=== PATIENT | female | born 1990 | race Two or more races ===

== ENCOUNTER 2019-02-19 22:40 | Inpatient (IN) | payer OTHER, BC ==
[~2019-02-19 22:40] MED LIST: IBUPROFEN600 MG PO; MAPAP325 MG PO; OXYCODON-ACETA1 EAC2 PO
[2019-02-19] MEDS ORDERED: ZANTAC150 MG PO (23:29)
[2019-02-19] MEDS ORDERED: PRENATAL FORMU1 EAC3 PO (23:30)
[2019-02-19] MEDS ORDERED: MAGNESIUM100 MG PO (23:31)
--- NOTE | 2019-02-20 08:52 | PR ---
[facility] [address] [place], [place] [address] Signed Progress Notes IP Datetime Report Generated by DOUGLAS: 02/20/2019 08:52 PROGRESS NOTES: [id number] Impression: Slow Progression of Labor Procedures: Intrauterine Pressure Catheter; Sterile Vag Exam Plan: Continue present management Other Informed Consents: IUPC, anticipated course of labor VITAL SIGNS: [id number] Vital Signs: Reviewed VS Notable Details: last BP slightly elevated. Taken during contraction EXAM: [id number] Dilatation: 3.0 Effacement: 90 Station: -2 Uterine Contractions: irregular MEMBRANES: [id number] Membrane Status: Ruptured Amniotic Fluid Color: Clear Comments: Pt seen and examined. Doing well. CTXs uncomfortable and considering epidural. Reviewed slow rate of cervical change. Discussed IUPC allowing to monitor contractions and augment w/ pitocin if needed. Pt understands and agrees. IUPC placed easily with clear fluid noted. All questions answered Fetus A: [id number] FHR Baseline: 130 Variability: Moderate 6-25bpm Accelerations: None Decelerations: None FHR Category: Category I Presentation: Vertex Comments on Fetus A: No evidence of metabolic acidosis Fetus B: [id number] Signing Physician: Julieth Al DO Copies: ~ *Electronically Signed* 02/20/19 0852 JULIETH AL DO PATIENT NAME: LUKAS RAMIREZ PROGRESS NOTE DATE OF : [birth year] PHYSICIAN: JULIETH AL DO [facility] #: [id number] REPORT IS CONFIDENTIAL AND NOT TO BE RELEASED WITHOUT AUTHORIZATION
--- NOTE | 2019-02-20 12:56 | PR ---
[facility] [address] [facility] [place], [place] [address] Signed Progress Notes IP Datetime Report Generated by CPEyal: 02/20/2019 12:56 PROGRESS NOTES: [id number] Impression: Normal progression of labor; Reassuring heart rate Procedures: Intrauterine Pressure Catheter; Sterile Vag Exam Plan: Continue present management Other Informed Consents: IUPC, anticipated course of labor VITAL SIGNS: [id number] Vital Signs: Reviewed; Within Normal Limits VS Notable Details: last BP slightly elevated. Taken during contraction EXAM: [id number] Dilatation: 5.0 Effacement: 100 Station: -2 Uterine Contractions: irregular MEMBRANES: [id number] Membrane Status: Ruptured Amniotic Fluid Color: Clear Comments: Doing well. Comfortable w/ epidural. 5cm. Pitocin @ 4mu. Fetus A: [id number] FHR Baseline: 140 Variability: Moderate 6-25bpm Accelerations: None Decelerations: Early; Variable FHR Category: Category II Presentation: Vertex Comments on Fetus A: No evidence of metabolic acidosis Fetus B: [id number] Signing Physician: Julieth Al DO Copies: ~ *Electronically Signed* 02/20/19 1256 JULIETH AL DO PATIENT NAME: LUKAS RAMIREZ PROGRESS NOTE DATE OF : 86 PHYSICIAN: JULIETH AL DO RPT #: [id number] REPORT IS CONFIDENTIAL AND NOT TO BE RELEASED WITHOUT AUTHORIZATION
--- NOTE | 2019-02-20 14:40 | PR ---
[facility] [place] [facility] [address] [facility] [place] [address] Signed Progress Notes IP Datetime Report Generated by CPEyal: 02/20/2019 14:40 PROGRESS NOTES: [id number] Impression: Normal progression of labor; Reassuring heart rate Procedures: Sterile Vag Exam Plan: Continue present management Other Informed Consents: IUPC, anticipated course of labor VITAL SIGNS: [id number] Vital Signs: Reviewed; Within Normal Limits VS Notable Details: last BP slightly elevated. Taken during contraction EXAM: [id number] Dilatation: 7.0 Effacement: 100 Station: -1 Uterine Contractions: q4 minutes MEMBRANES: [id number] Membrane Status: Ruptured Amniotic Fluid Color: Clear Comments: Pt doing well. Comfortable w/ epidural. Pitocin was held for period of decreased variability, and now resumed. Reviewed w/ pt. Anticipate Fetus A: [id number] FHR Baseline: 145 Variability: Moderate 6-25bpm Accelerations: None Decelerations: Early; Variable FHR Category: Category II Presentation: Vertex Other Presentation: PROMISE Comments on Fetus A: No evidence of metabolic acidosis Fetus B: [id number] Signing Physician: Julieth Al DO Copies: ~ *Electronically Signed* 02/20/19 1442 JULIETH AL DO PATIENT NAME: LUKAS RAMIREZ JANNETTE PROGRESS NOTE DATE OF : 86 PHYSICIAN: JULIETH AL #: [id number] REPORT IS CONFIDENTIAL AND NOT TO BE RELEASED WITHOUT AUTHORIZATION
--- NOTE | 2019-02-20 15:40 | PR ---
[facility] [address] [place], [place] [address] Signed Progress Notes IP Datetime Report Generated by DUOGLAS: 02/20/2019 15:40 PROGRESS NOTES: [id number] Impression: Normal progression of labor; Reassuring heart rate Procedures: Scalp Electrode; Sterile Vag Exam Plan: Continue present management Informed Consent Obtain: Vaginal Delivery; Section Delivery Other Informed Consents: IUPC, anticipated course of labor VITAL SIGNS: [id number] Vital Signs: Reviewed; Within Normal Limits VS Notable Details: last BP slightly elevated. Taken during contraction EXAM: [id number] Dilatation: 8.0 Effacement: 100 Station: -1 Uterine Contractions: q 4-5 minutes MEMBRANES: [id number] Membrane Status: Ruptured Amniotic Fluid Color: Clear Comments: Called to pt room to evaluate strip. Intermittent minimal and moderate variability. Pitocin was d/c'd. IV fluid bolus and O2 applied. Variable deceleration noted. Scalp stim noted w/ FSE placement. Pt afebrile. Discussed FHT. Reviewed indications for should it be required but reviewed reassuring FHT at this time. CTXs have spaced; discussed would possibly restart pit per protocol. All questions answered. Fetus A: [id number] FHR Baseline: Indeterminate Variability: Minimal - Undetectable to <5bpm Accelerations: 15X15 Decelerations: Variable FHR Category: Category II Presentation: Vertex Other Presentation: PROMISE Comments on Fetus A: Acceleration noted w/ scalp stim. No evidence of metabolic acidosis Fetus B: [id number] Signing Physician: Julieth Al DO *Electronically Signed* 02/20/19 1540 AL,JULIETH Schumacher DO PATIENT NAME: LUKAS RAMIREZ PROGRESS NOTE DATE OF : [birth year] PHYSICIAN: JULIETH AL DO RPT #: [id number] REPORT IS CONFIDENTIAL AND NOT TO BE RELEASED WITHOUT AUTHORIZATION [facility] [address] [place] [place] [address] Signed Copies: ~ *Electronically Signed* 02/20/19 154 AL,JULIETH Schumacher DO PATIENT NAME: LUKAS RAMIREZ PROGRESS NOTE DATE OF : [birth year] PHYSICIAN: JULIETH AL DO RPT #: [id number] REPORT IS CONFIDENTIAL AND NOT TO BE RELEASED WITHOUT AUTHORIZATION
--- NOTE | 2019-02-20 17:34 | PR ---
[facility] [address] [place], [place] [address] Signed Progress Notes IP Datetime Report Generated by DOUGLAS: 02/20/2019 17:34 PROGRESS NOTES: [id number] Impression: Reassuring heart rate; Slow Progression of Labor Procedures: Scalp Electrode; Sterile Vag Exam Plan: Augmentation Informed Consent Obtain: Risks, Benefits and Alternatives Discussed Other Informed Consents: Pitocin augmentation VITAL SIGNS: [id number] Vital Signs: Reviewed VS Notable Details: Maternal heart rate improved w/ IV fluid bolus EXAM: [id number] Dilatation: 8.0 Effacement: 100 Station: -1 Uterine Contractions: q4 minutes (inadequate) MEMBRANES: [id number] Membrane Status: Ruptured Amniotic Fluid Color: Clear Comments: Pt seen and evaluated. Unchanged on exam per RN. Afebrile and maternal HR improved w/ IV fluid bolus. Reviewed inadequate contractions and options including expectant management vs pitocin augementation. Will start pitocin. All questions answered Fetus A: [id number] FHR Baseline: 150 Variability: Minimal - Undetectable to <5bpm Accelerations: 15X15 Decelerations: None FHR Category: Category II Presentation: Vertex Other Presentation: PROMISE Comments on Fetus A: No evidence of metabolic acidosis Fetus B: [id number] Signing Physician: Julieth Al DO Copies: *Electronically Signed* 02/20/19 1735 JULIETH AL DO PATIENT NAME: LUKAS RAMIREZ PROGRESS NOTE DATE OF : [birth year] PHYSICIAN: JULIETH AL DO RPT #: [id number] REPORT IS CONFIDENTIAL AND NOT TO BE RELEASED WITHOUT AUTHORIZATION [address] [place] [address] Signed ~ *Electronically Signed* 02/20/19 1734 JULIETH AL DO PATIENT NAME: LUKAS RAMIREZ PROGRESS NOTE DATE OF : [birth year] PHYSICIAN: JULIETH AL DO RPT #: [id number] REPORT IS CONFIDENTIAL AND NOT TO BE RELEASED WITHOUT AUTHORIZATION
--- NOTE | 2019-02-20 19:31 | PR ---
[facility] [address] [place], [place] [address] Signed Progress Notes IP Datetime Report Generated by DOUGLAS: 02/20/2019 19:31 PROGRESS NOTES: [id number] Impression: Reassuring heart rate; Slow Progression of Labor Procedures: Sterile Vag Exam Plan: Continue present management; Augmentation Informed Consent Obtain: Risks, Benefits and Alternatives Discussed Other Informed Consents: Pitocin augmentation VITAL SIGNS: [id number] Vital Signs: Reviewed; Within Normal Limits VS Notable Details: Maternal heart rate improved w/ IV fluid bolus EXAM: [id number] Dilatation: 8.0 Effacement: 100 Station: -1 Uterine Contractions: q 5-6 minutes MEMBRANES: [id number] Membrane Status: Ruptured Amniotic Fluid Color: Clear Comments: Pt seen and examined. Doing well. Comfortable w/ ctxs. Afebrile. Cervix unchanged, however contractions continue to be inadequate. Will continue w/ pitocin per protocol. Discussed possibility of delivery if pt continues to remain unchanged. Pt and understand and agrees. All questions answered. Fetus A: [id number] FHR Baseline: 145 Variability: Moderate 6-25bpm Accelerations: 15X15 Decelerations: Variable FHR Category: Category II Presentation: Vertex Other Presentation: PROMISE Comments on Fetus A: No evidence of metabolic acidosis Fetus B: [id number] Signing Physician: Julieth Al DO Copies: *Electronically Signed* 02/20/191930 JULIETH AL DO PATIENT NAME: LUKAS RAMIREZ PROGRESS NOTE DATE OF : 86 PHYSICIAN: JULIETH AL DO RPT #: [id number] REPORT IS CONFIDENTIAL AND NOT TO BE RELEASED WITHOUT AUTHORIZATION [facility] [address] [place] [address] Signed ~ *Electronically Signed* 02/20/19 193 JULIETH AL DO PATIENT NAME: LUKAS RAMIREZ PROGRESS NOTE DATE OF : [birth year] PHYSICIAN: JULIETH AL DO RPT #: [id number] REPORT IS CONFIDENTIAL AND NOT TO BE RELEASED WITHOUT AUTHORIZATION
--- NOTE | 2019-02-20 21:48 | PR ---
[facility] [address] [place], [place] [address] Signed Progress Notes IP Datetime Report Generated by DOUGLAS: 02/20/2019 21:48 PROGRESS NOTES: [id number] Impression: Normal progression of labor; Reassuring heart rate Procedures: Sterile Vag Exam Plan: Continue present management; Anticipate Vaginal Delivery Informed Consent Obtain: Vaginal Delivery Other Informed Consents: Pitocin augmentation VITAL SIGNS: [id number] Vital Signs: Reviewed; Within Normal Limits VS Notable Details: Maternal heart rate improved w/ IV fluid bolus EXAM: [id number] Dilatation: 10.0 Effacement: 100 Station: 0 Uterine Contractions: q 2-4 minutes MEMBRANES: [id number] Membrane Status: Ruptured Amniotic Fluid Color: Clear Comments: Pt seen and examined. Doing well. Was c/o increased pressure and received an epidural bolus with good relief. Afebrile. Will start pushing. Discussed anticipated course of second stage of labor. All questions answered. Fetus A: [id number] FHR Baseline: 150 Variability: Minimal - Undetectable to <5bpm Accelerations: None Decelerations: Early; Variable FHR Category: Category II Presentation: Vertex Other Presentation: PROMISE Comments on Fetus A: No evidence of metabolic acidosis Fetus B: [id number] Signing Physician: Julieth lA DO Copies: ~ *Electronically Signed* 02/20/19 2148 JULIETH AL DO PATIENT NAME: DREA RAMIREZAllen BHATIA PROGRESS NOTE DATE OF : 86 PHYSICIAN: JULIETH AL DO RPT #: [id number] REPORT IS CONFIDENTIAL AND NOT TO BE RELEASED WITHOUT AUTHORIZATION
--- NOTE | 2019-02-20 22:27 | PR ---
[facility] [address] [place], [place] [address] Signed Progress Notes IP Datetime Report Generated by CPN: 02/20/2019 22:27 PROGRESS NOTES: [id number] Impression: Normal progression of labor; Reassuring heart rate Procedures: Sterile Vag Exam Plan: Continue present management; Anticipate Vaginal Delivery Informed Consent Obtain: Vaginal Delivery Other Informed Consents: Pitocin augmentation VITAL SIGNS: W3053475 Vital Signs: Reviewed VS Notable Details: Maternal tachy w/ pushing w/ good return between ctxs EXAM: [id number] Dilatation: 10.0 Effacement: 100 Station: 1 Uterine Contractions: q 3-4 min MEMBRANES: [id number] Membrane Status: Ruptured Amniotic Fluid Color: Clear Comments: At pt's bedside since prolonged variable deceleration noted @ 22:00. Pt pushing very well w/ contractions and fetus tolerating pushing efforts well. Anticipate soon. Reviewed w/ pt and . All questions answered Fetus A: [id number] FHR Baseline: 150 Variability: Moderate 6-25bpm Accelerations: None Decelerations: Variable FHR Category: Category II Presentation: Vertex Other Presentation: PROMISE Comments on Fetus A: No evidence of metabolic acidosis Fetus B: [id number] Signing Physician: Julieth Al DO Copies: ~ *Electronically Signed* 02/20/19 2227 JULIETH AL DO PATIENT NAME: DREA RAMIREZAllen BHATIA PROGRESS NOTE DATE OF : 86 PHYSICIAN: JULIETH AL DO RPT #: [id number] REPORT IS CONFIDENTIAL AND NOT TO BE RELEASED WITHOUT AUTHORIZATION
--- NOTE | 2019-02-21 10:42 | PR ---
[facility] [address] [facility] [place], [place] [address] Signed PP Progress Notes Datetime Report Generated by CPN: 02/21/2019 10:42 SUBJECTIVE: [id number] Pain: Within normal limits Nausea/Vomiting: Denies Flatus: Yes Bowel Movement: No Vital Signs: [id number] Vital Signs: Reviewed EXAM: [id number] Cardiovascular: Normal Respiratory: Normal Abdomen/Uterus: Normal Lochia: Normal Vulva/Perineum: Not Done Breasts: Not Done CVA Tenderness: Normal Extremities: Normal Incision: Normal Progress: Normal Exam Comments: Fundus firm U-2 nontender IMPRESSION/PLAN/PROCEDURES: [id number] Impression: Normal progression Plan: Continue present management Progress Notes: Pt seen and examined. Doing well. Ambulating, voiding, and tolerating a full diet. Pain well controlled with orals. Lochia minimal. with support. No other questions or concerns. Signing Physician: Julieth Al DO Copies: ~ *Electronically Signed* 02/21/19 1042 JULIETH AL DO PATIENT NAME: LUKAS RAMIREZ PROGRESS NOTE DATE OF : [birth year] PHYSICIAN: JULIETH AL DO RPT #: [id number] REPORT IS CONFIDENTIAL AND NOT TO BE RELEASED WITHOUT AUTHORIZATION
--- NOTE | 2019-02-22 08:03 | PR ---
[facility] [address] [place], [place] [address] Signed PP Progress Notes Datetime Report Generated by CPN: 02/22/2019 08:02 SUBJECTIVE: [id number] Pain: Within normal limits Nausea/Vomiting: Denies Flatus: Yes Bowel Movement: No Vital Signs: [id number] Vital Signs: Reviewed; Within Normal Limits EXAM: [id number] Cardiovascular: Normal Respiratory: Normal Abdomen/Uterus: Normal Lochia: Normal Vulva/Perineum: Not Done Breasts: Not Done CVA Tenderness: Normal Extremities: Normal Incision: Not Applicable Progress: Normal Exam Comments: Fundus firm U-2 nontender IMPRESSION/PLAN/PROCEDURES: [id number] Impression: Normal progression Plan: Discharge Procedures: Rubella Progress Notes: Pt seen and examined. Doing well. Ambulating, voiding, and tolerating a full diet. Pain well controlled with orals. Lochia minimal. with support. No other questions or concerns. D/C home. MMR prior to discharge. Signing Physician: Julieth Al DO Copies: ~ *Electronically Signed* 02/22/19 08 JULIETH AL DO PATIENT NAME: LUKAS RAMIREZ PROGRESS NOTE DATE OF : 86 PHYSICIAN: JULIETH AL DO RPT #: [id number] REPORT IS CONFIDENTIAL AND NOT TO BE RELEASED WITHOUT AUTHORIZATION
--- NOTE | 2019-02-23 12:14 | PATH ---
[facility] [address] [place], [place] [address] Signed SPECIMEN(S): A PLACENTA, 3RD TRIMESTER SPECIMEN SOURCE: A. PLACENTA, 3RD TRIMESTER CLINICAL HISTORY: OB history: A0. Gestational age: 39 3/7. Weight: 7# 3 oz., grade 3 calcification of placenta FINAL PATHOLOGIC DIAGNOSIS: Placenta, membranes and umbilical cord: - membranes: No microscopic pathologic diagnosis. - Umbilical cord: Three vascular channels identified, no microscopic pathologic diagnosis. - Placenta: Third trimester placenta, fixed placental weight 388 grams (approximately 15-20th percentile for given gestational age). - Prominent calcifications present consistent with clinical impression of grade 3 calcifications. - Negative for infarct and inflammation. LJA:cml:C2NR MICROSCOPIC EXAMINATION: Histologic sections of all submitted blocks are examined by light microscopy. These findings, together with the gross examination, support the pathologic diagnosis. GROSS DESCRIPTION: The specimen, labeled "AR, placenta," is received in formalin and consists of franks discoid placenta with the following parameters: Umbilical cord: Insertion paramarginal, measurement 38.8 x 1.4 cm; trivascular. Cord coiling index (per 10 cm): Five. Lesions: Not grossly identified. Membranes: Insertion site: Marginal, mcfadden and translucent, rupture site grossly unremarkable. Intact. Other: Not grossly identified. Chorionic Plate: Normal radiating vascular pattern, blue-purple and shiny. Lesions: Not grossly identified. Other: Not grossly identified. Maternal Surface: Focally fused cotyledons, intact. Lesions: Diffuse areas of white calcification, which involve approximately 70% of the maternal surface. Measurement: 20.1 x 16.4 x 2.0 cm. Weight (trimmed): 388 g Cut Surface: Maroon and spongy. Lesions: Focal areas of calcification that involve less than 10% of the placenta parenchyma. Basal plate fibrin 0.1 cm in thickness. PATIENT NAME: LUKAS RAMIREZ PATHOLOGY DATE OF : 86 REPORT #: [id number] PHYSICIAN: LAUREL PATHOLOGY PCP: NO PRIMARY CARE PHYSICIAN REPORT IS CONFIDENTIAL AND NOT TO BE RELEASED WITHOUT AUTHORIZATION [facility] [address] [place], [place] [address] Signed Other Findings: Multilobed placental disc Cassette Summary: (A1) Membranes and umbilical cord (A2) Area of calcification (A3) Placenta parenchyma (A4) Placenta parenchyma. FB (under the direct supervision of a pathologist) The Gross Description was prepared using a voice recognition system. The report was reviewed for accuracy; however, sound-alike word errors, addition and/or deletions may occur. If there is any question about this report, please contact Client Services. PERFORMING LABORATORY: The technical component was performed by [facility], [address] [place] [address] ([employer] Machine Operator: Lorna Serra MD; CLIA# [id number]). Professional interpretation was performed by [facility], [address] [address] ([employer] Machine Operator: Zev Garcia MD; CLIA# [id number]). Diagnostician: Zev Garcia MD Pathologist Electronically Signed 02/23/2019 Copies: ~ PATIENT NAME: LUKAS RAMIREZ PATHOLOGY DATE OF : 86 REPORT #: [id number] PHYSICIAN: LAUREL PATHOLOGY PCP: NO PRIMARY CARE PHYSICIAN REPORT IS CONFIDENTIAL AND NOT TO BE RELEASED WITHOUT AUTHORIZATION
== END 2019-02-22 12:25 | disposition home or self-care (01) | DRG 807 ==
LOC: FBCO 22:40 → FBC 22:41
PROVIDERS: ADMIT Obstetrics & Gynecology
PROC: 10E0XZZ Delivery of Products of Conception, External Approach (ICD-10-PCS; principal; 2019-02-20)
PROC: 0KQM0ZZ Repair Perineum Muscle, Open Approach (ICD-10-PCS; 2019-02-20)
PROC: 10H07YZ Insertion of Other Device into Products of Conception, Via Natural or Artificial Opening (ICD-10-PCS; 2019-02-20)
PROC: 00HU33Z Insertion of Infusion Device into Spinal Canal, Percutaneous Approach (ICD-10-PCS; 2019-02-20)
PROC: 3E0R3BZ Introduction of Anesthetic Agent into Spinal Canal, Percutaneous Approach (ICD-10-PCS; 2019-02-20)
PROC: 3E0234Z Introduction of Serum, Toxoid and Vaccine into Muscle, Percutaneous Approach (ICD-10-PCS; 2019-02-22)
DX: O63.9 Long labor, unspecified (principal); Z37.0 Single live birth; Z3A.39 39 weeks gestation of pregnancy; O69.1XX0 Labor and delivery complicated by cord around neck, with compression, not applicable or unspecified; O99.214 Obesity complicating childbirth; E66.9 Obesity, unspecified; O76 Abnormality in fetal heart rate and rhythm complicating labor and delivery; O70.1 Second degree perineal laceration during delivery; O99.62 Diseases of the digestive system complicating childbirth; K21.9 Gastro-esophageal reflux disease without esophagitis; O99.89 Other specified diseases and conditions complicating pregnancy, childbirth and the puerperium; M62.831 Muscle spasm of calf; Z23 Encounter for immunization; O43.893 Other placental disorders, third trimester
CPT/HCPCS: 01960; 36415; 85027; 90707; J2590; J2795; J7120

== ENCOUNTER 2021-02-08 14:00 | Inpatient (IN) | payer OTHER, BC ==
[~2021-02-08] VITALS: Ht 165.1 cm; Wt 94.8 kg
[~2021-02-08 14:00] MED LIST changes: +MAGNESIUM100 MG PO; +PRENATAL FORMU1 EAC3 PO; +ZANTAC150 MG PO
[2021-02-09] MEDS ORDERED: VITAMIN C PO (01:10)
[2021-02-09] MEDS ORDERED: ZINC (01:11)
[2021-02-09] MEDS ORDERED: VITAMIN D (01:11)
--- NOTE | 2021-02-09 15:41 | PR ---
[facility] [address] [place], [place] [address] Signed Progress Notes IP Datetime Report Generated by CPN: 02/09/2021 15:41 PROGRESS NOTES: [id number] Impression: Normal Progression of Labor; Reassuring Heart Rate Procedures: Artificial ROM; Sterile Vag Exam Plan: Continue Present Management Informed Consent Obtain: Vaginal Delivery VITAL SIGNS: [id number] Vital Signs: Reviewed; Within Normal Limits EXAM: [id number] Dilatation: 3.0 Effacement: 60 Station: -3 Contractions: Rare MEMBRANES: [id number] Comments: Pt seen and examined. Doing well. Ctxs more intense but still mild. Cervix ripe and discussed AROM. S/P PCN prophyaxis and receiving q 4 hrs. vertex well applied and AROM easily performed for moderate amount of clear fliud. Pt considering epidural. Discussed anticipated course of labor. All questions answered FETUS A: [id number] FHR Baseline: 130 Variability: Minimal - >Undetectable to <=5bpm Accelerations: None Decelerations: None FHR Category: Category II Presentation: Vertex Comments on Fetus A: No evidence of metabolic acidosis FETUS B: [id number] Signing Physician: Julieth Al DO Copies: ~ *Electronically Signed* 02/09/21 1543 JULIETH AL DO PATIENT NAME: LUKAS RAMIREZ PROGRESS NOTE DATE OF : 86 PHYSICIAN: JULIETH AL DO RPT #: [id number] REPORT IS CONFIDENTIAL AND NOT TO BE RELEASED WITHOUT AUTHORIZATION
--- NOTE | 2021-02-10 09:54 | PR ---
[facility] [address] [place], [place] [address] Signed PP Progress Notes Datetime Report Generated by CPN: 02/10/2021 09:54 SUBJECTIVE: [id number] Pain: Within Normal Limits Nausea/Vomiting: Denies Flatus: Yes Bowel Movement: No Vital Signs: [id number] Vital Signs: Reviewed; Within Normal Limits Cardiovascular: Normal Respiratory: Normal Abdomen/Uterus: Normal Lochia: Normal Vulva/Perineum: Not Done Breasts: Not Done CVA Tenderness: Normal Extremities: Normal Incision: Not Applicable Progress: Normal Exam Comments: Fundus firm U-2 nontender IMPRESSION/PLAN/PROCEDURES: [id number] Impression: Normal Progression Plan: Continue Present Management Progress Notes: Pt seen and examined. Doing well. Ambulating, voiding, and tolerating full diet. Pain and lochia minimal. Bottlefeeding well. No fevers/chills or other concerns. Anticipate d/c home tomorrow. Hgb 10.6 Signing Physician: Julieth Al DO Copies: ~ *Electronically Signed* 02/10/21 0954 JULIETH AL DO PATIENT NAME: LUKAS RAMIREZ PROGRESS NOTE DATE OF : 86 PHYSICIAN: JULIETH AL DO RPT #: [id number] REPORT IS CONFIDENTIAL AND NOT TO BE RELEASED WITHOUT AUTHORIZATION
--- NOTE | 2021-02-11 07:06 | PR ---
[facility] [address] [place], [place] [address] Signed PP Progress Notes Datetime Report Generated by CPN: 02/11/2021 07:06 SUBJECTIVE: [id number] Pain: Within Normal Limits Nausea/Vomiting: Denies Flatus: Yes Bowel Movement: No Vital Signs: [id number] Vital Signs: Reviewed; Within Normal Limits Cardiovascular: Normal Respiratory: Normal Abdomen/Uterus: Normal Lochia: Not Done Vulva/Perineum: Not Done Breasts: Not Done CVA Tenderness: Normal Extremities: Normal Incision: Not Applicable Progress: Normal Exam Comments: fundus firm U-2 nontender IMPRESSION/PLAN/PROCEDURES: [id number] Impression: Normal Progression Plan: Discharge Progress Notes: Pt seen and examined. Doing well. Ambulating, voiding, and tolerating full diet. Pain and lochia minimal. Bottlefeeding. No other complaints and desires d/c home today. Reviewed d/c instructions and pt planning on natural family planning. Signing Physician: Julieth Al DO Copies: ~ *Electronically Signed* 02/11/21 07 JULIETH AL DO PATIENT NAME: LUKAS RAMIREZ PROGRESS NOTE DATE OF : 86 PHYSICIAN: JULIETH AL DO RPT #: [id number] REPORT IS CONFIDENTIAL AND NOT TO BE RELEASED WITHOUT AUTHORIZATION
== END 2021-02-11 09:10 | disposition home or self-care (01) | DRG 807 ==
LOC: FBC 14:00
PROVIDERS: ADMIT Obstetrics & Gynecology; ATTEND Obstetrics & Gynecology
PROC: 10E0XZZ Delivery of Products of Conception, External Approach (ICD-10-PCS; principal; 2021-02-09)
PROC: 0KQM0ZZ Repair Perineum Muscle, Open Approach (ICD-10-PCS; 2021-02-09)
PROC: 3E0DXGC Introduction of Other Therapeutic Substance into Mouth and Pharynx, External Approach (ICD-10-PCS; 2021-02-09)
PROC: 10907ZC Drainage of Amniotic Fluid, Therapeutic from Products of Conception, Via Natural or Artificial Opening (ICD-10-PCS; 2021-02-09)
PROC: 3E0R3BZ Introduction of Anesthetic Agent into Spinal Canal, Percutaneous Approach (ICD-10-PCS; 2021-02-09)
PROC: 00HU33Z Insertion of Infusion Device into Spinal Canal, Percutaneous Approach (ICD-10-PCS; 2021-02-09)
DX: O99.824 Streptococcus B carrier state complicating childbirth (principal); Z37.0 Single live birth; O77.0 Labor and delivery complicated by meconium in amniotic fluid; Z3A.39 39 weeks gestation of pregnancy; O70.1 Second degree perineal laceration during delivery; O43.123 Velamentous insertion of umbilical cord, third trimester; O69.1XX0 Labor and delivery complicated by cord around neck, with compression, not applicable or unspecified
CPT/HCPCS: 01960; 85027; A9270; J2540; J2590; J2795; J3010

== ENCOUNTER 2022-09-21 05:01 | Inpatient (IN) | payer OTHER, BC ==
[~2022-09-21] VITALS: Ht 165.1 cm; Wt 100.2 kg
[~2022-09-21 05:01] MED LIST changes: +VITAMIN C PO; +VITAMIN D; +ZINC
[2022-09-21 06:03] VITALS: BP 124/84
--- NOTE | 2022-09-21 06:19 | NUR ---
COVID SWAB DONE TO BOTH NARES AND SENT TO IN HOUSE LAB.
--- NOTE | 2022-09-21 16:32 | PR ---
[facility] [address] [facility] [place], [place] [address] Signed Progress Notes IP Datetime Report Generated by CPN: 09/21/2022 16:32 PROGRESS NOTES: [id number] Impression: Normal Progression of Labor; Reassuring Heart Rate Procedures: Sterile Vag Exam Plan: Continue Present Management; Anticipate Vaginal Delivery Other Plans: consider epidural Informed Consent Obtain: Vaginal Delivery VITAL SIGNS: [id number] Vital Signs: Reviewed; Within Normal Limits EXAM: [id number] Dilatation: 8.0 Effacement: 90 Station: -2 Contractions: None MEMBRANES: [id number] Comments: Pt seen and examined. Doing well. Comfortable w/ epidural. FHT reassuring with some variables. Expect soon. FETUS A: [id number] FHR Baseline: 140 Variability: Moderate 6-25bpm Accelerations: None Decelerations: None FHR Category: Category I Presentation: Vertex Comments on Fetus A: No evidence of metabolic acidosis FETUS B: [id number] Signing Physician: Julieth Al DO Copies: ~ *Electronically Signed* 09/21/22 2049 JULIETH AL (BARRETT) DO PATIENT NAME: LUKAS RAMIREZ PROGRESS NOTE DATE OF : 86 PHYSICIAN: JULIETH AL (BARRETT) DO RPT #: [id number] REPORT IS CONFIDENTIAL AND NOT TO BE RELEASED WITHOUT AUTHORIZATION
--- NOTE | 2022-09-21 17:52 | PR ---
[facility] [address] [facility] [place], [place] [address] Signed Progress Notes IP Datetime Report Generated by CPN: 09/21/2022 17:52 PROGRESS NOTES: [id number] Impression: Normal Progression of Labor; Reassuring Heart Rate Procedures: Sterile Vag Exam Plan: Anticipate Vaginal Delivery Other Plans: consider epidural Informed Consent Obtain: Vaginal Delivery VITAL SIGNS: [id number] Vital Signs: Reviewed; Within Normal Limits EXAM: [id number] Dilatation: 10.0 Effacement: 100 Station: -1 Contractions: None MEMBRANES: [id number] Comments: Pt seen and examined. Reports involuntary urge to bear down. Complete 0 station. Will set up for delivery. Anticipate soon FETUS A: [id number] FHR Baseline: 140 Variability: Moderate 6-25bpm Accelerations: None Decelerations: None FHR Category: Category I Presentation: Vertex Comments on Fetus A: No evidence of metabolic acidosis FETUS B: [id number] Signing Physician: Julieth Al DO Copies: ~ *Electronically Signed* 09/21/22 094 JULIETH AL (BARRETT) DO PATIENT NAME: LUKAS RAMIREZ PROGRESS NOTE DATE OF : 86 PHYSICIAN: JULIETH AL (BARRETT) DO RPT #: [id number] REPORT IS CONFIDENTIAL AND NOT TO BE RELEASED WITHOUT AUTHORIZATION
--- NOTE | 2022-09-22 18:04 | PR ---
[facility] [address] [place], [place] [address] Signed PP Progress Notes Datetime Report Generated by CPN: 09/22/2022 18:04 SUBJECTIVE: [id number] Pain: Within Normal Limits Nausea/Vomiting: Denies Flatus: Yes Vital Signs: [id number] Vital Signs: Reviewed; Within Normal Limits Cardiovascular: Normal Respiratory: Normal Abdomen/Uterus: Normal Lochia: Normal Vulva/Perineum: Not Done Breasts: Not Done CVA Tenderness: Normal Extremities: Normal Incision: Not Applicable Progress: Normal Exam Comments: Fundus firm U-2 nontender IMPRESSION/PLAN/PROCEDURES: [id number] Impression: Normal Progression Plan: Discharge Progress Notes: Pt seen and examined. Doing well. Ambulating voiding, and tolerating full diet. Pain controlled w/ ibuprofen and norco; pt requesting d/c home with few narcotics. Lochia minimal. well. No other conerns. BPs normal Hgb 8.7; asymptomatic. Signing Physician: Julieth Al DO Copies: ~ *Electronically Signed* 09/22/22 1808 JUILETH AL (BARRETT) DO PATIENT NAME: LUKAS RAMIREZ PROGRESS NOTE DATE OF : 86 PHYSICIAN: JULIETH AL (BARRETT) DO RPT #: [id number] REPORT IS CONFIDENTIAL AND NOT TO BE RELEASED WITHOUT AUTHORIZATION
== END 2022-09-22 18:52 | disposition home or self-care (01) | DRG 807 ==
LOC: FBC 05:01
PROVIDERS: ADMIT Obstetrics & Gynecology; ATTEND Obstetrics & Gynecology
PROC: 10E0XZZ Delivery of Products of Conception, External Approach (ICD-10-PCS; principal; 2022-09-21)
PROC: 00HU33Z Insertion of Infusion Device into Spinal Canal, Percutaneous Approach (ICD-10-PCS; 2022-09-21)
PROC: 3E0R3BZ Introduction of Anesthetic Agent into Spinal Canal, Percutaneous Approach (ICD-10-PCS; 2022-09-21)
PROC: 0KQM0ZZ Repair Perineum Muscle, Open Approach (ICD-10-PCS; 2022-09-21)
PROC: 10907ZC Drainage of Amniotic Fluid, Therapeutic from Products of Conception, Via Natural or Artificial Opening (ICD-10-PCS; 2022-09-21)
DX: O13.4 Gestational [pregnancy-induced] hypertension without significant proteinuria, complicating childbirth (principal); Z37.0 Single live birth; Z67.10 Type A blood, Rh positive; Z20.822 Contact with and (suspected) exposure to COVID-19; O70.1 Second degree perineal laceration during delivery; O69.81X0 Labor and delivery complicated by cord around neck, without compression, not applicable or unspecified; Z88.1 Allergy status to other antibiotic agents
CPT/HCPCS: 01960; 36415; 85027; 86850; 86900; 86901; 87502; A9270; C9803; J2405; J2590; J2795; J3010; J7121; U0003

== ENCOUNTER 2023-05-11 09:45 | Day surgery (SDC) | payer OTHER, BC ==
[2023-05-06 08:14] VITALS: BP 123/94
[~2023-05-11] VITALS: Ht 165.1 cm; Wt 93.2 kg
[~2023-05-11 09:45] MED LIST changes: +IRON325 M1 PO; +OMEPRAZOLE20 MG PO
[2023-05-11 10:04] VITALS: BP 133/81
--- NOTE | 2023-05-11 10:49 | NUR ---
panel builder in to talk with pt. denies need to go to br. scds on.
[2023-05-11] MEDS ORDERED: OXYCODON-ACETA1 EAC2 PO (12:20)
[2023-05-11] MEDS ORDERED: IBUPROFEN600 MG PO (12:20)
[2023-05-11] MEDS ORDERED: ACETAMINOPHEN500 MG PO (12:21)
--- NOTE | 2023-05-11 12:32 | NUR ---
05/11/23 1232 Fatuma Carrizales 1208 PT ARRIVED IN PACU NON RESPONSIVE TO NOXIOUS STIMULI WITH OPA IN PLACE. 1220 DR AT BEDSIDE. NO CHANGE IN PT STATUS. 1227 PT REACTIVE. OPA REMOVED. 1230 RESTING. REU.
[2023-05-11 12:51] VITALS: BP 122/80
[2023-05-11 13:39] VITALS: BP 115/76
--- NOTE | 2023-05-11 14:18 | NUR ---
1400 AMB HALLWAY TO BR VOIDS 200ML ALBERTO URINE. REQUEST TO GO HOME. WAS EDUCATED ON SCOPALOMINE PATCH TO WASH HANDS WHEN HANDLING PATCH.
--- NOTE | 2023-05-11 19:06 | OR ---
[facility] [address] [place], [place] [address] Signed DATE OF OPERATION: 05/11/2023 SURGEON: Rufino Solorzano MD PREOPERATIVE DIAGNOSES: 1. Symptomatic gallstones. 2. Gastroesophageal reflux. 3. Obesity. POSTOPERATIVE DIAGNOSES: 1. Symptomatic gallstones. 2. Gastroesophageal reflux. 3. Obesity. 4. Chronic calculous cholecystitis. PROCEDURE: 1. Laparoscopic cholecystectomy with intraoperative cholangiogram. 2. Surgeon-directed fluoroscopy. ANESTHESIA: General endotracheal, Gumaro Mclean, MACHINE TURNER and local 10 mL of 0.25% Marcaine with epinephrine. INDICATION: This 33-year-old obese woman is from [place], [place] and a patient of Tricia Ross MD. She was noted to have typical gastroesophageal reflux symptoms for which PPI medication is quite helpful. Upper endoscopy was recommended. In addition, she has had gallbladder ultrasound confirming gallstones of the gallbladder. As her dominant symptoms currently chronic calculous cholecystitis, I have recommended cholecystectomy to be performed at this time, later to consider upper endoscopy. The risk of cholecystectomy at this time includes, but are not limited to bleeding, infection, bile duct injury, need for open procedure, need for common duct exploration, and of course inability to fully cure her current GI symptoms. Understanding that she and her wish to proceed. FINDINGS: The liver was normal. The gallbladder was chronically inflamed and had multiple adhesions to its undersurface. The gallbladder once excised showed multiple small 4 mm gallstones that were round and green. Intraoperative cholangiography showed no sign of biliary anomaly. The cystic duct was relatively narrow and long. There were no other Electronically Signed By: RUFINO SOLORZANO MD 05/11/23 1906 PATIENT NAME: LUKAS RAMIREZ OPERATIVE REPORT DATE OF : 86 REPORT #: [id number] PHYSICIAN: RUFINO SOLORZANO MD PCP: RICO PARK NP REPORT IS CONFIDENTIAL AND NOT TO BE RELEASED WITHOUT AUTHORIZATION [facility] [address] [place], [place] [address] Signed findings of concern. DESCRIPTION OF PROCEDURE: The patient was brought to the operating room, given a general endotracheal anesthetic. Preoperative antibiotic Ancef was given. Sequential compression device stockings used and heparin subcutaneously administered. She was given intravenous Pepcid as well based on her underlying reflux issues. The abdomen was prepared with a chlorhexidine solution and draped sterilely. An infraumbilical incision was made and using an open Juliana cannula technique, the abdomen was entered and pneumoperitoneum achieved to a level of 14 mmHg of carbon dioxide gas. Intra-abdominal inspection showed normal-appearing liver. The gallbladder was obscured from view at that point. Three additional trocars were placed in usual configuration in the subxiphoid, right midclavicular, and right anterior axillary line. The gallbladder was elevated cephalad and retracted laterally. Using blunt and electrocautery dissection, the triangle of Calot was dissected free. The cystic artery and cystic duct were well identified. The cystic artery was doubly clipped and divided and a clip applied to the gallbladder cystic duct junction and a transverse choledochotomy made in the cystic duct. Egress of clear bile was noted. Milking of the cystic duct in a retrograde fashion showed no sign of stones or debris. Using the Shahid type cholangiocatheter, intraoperative cholangiography was undertaken showing free flow of contrast in the biliary tree with prompt emptying into the duodenum. Retrograde filling of the proximal biliary tree was adequate. There were no filling defects there either. The catheter was removed. The cystic duct was triply clipped and divided. The gallbladder was then dissected free in a retrograde fashion using electrocautery. Gallbladder was placed in an endobag and extracted through the infraumbilical port site without problem, opened on the back table and found to have multiple small 4 mm gallstones. Mucosa showed no sign of neoplasm. Irrigation was undertaken in subhepatic space. Good hemostasis was noted. The trocars removed under direct visualization showing no sign of bleeding. The infraumbilical fascial incision was reapproximated with interrupted 0 Vicryl suture. 10 mL of 0.25% Marcaine with epinephrine injected locally. The skin was then closed with interrupted 3-0 Vicryl, Steri-Strips were applied. The patient was ultimately extubated and transferred to recovery room in good condition having suffered no complications. Sponge, needle, and instrument counts reported as correct x3. MD TERESSA Chavez/MODL Electronically Signed By: RUFINO SOLORZANO MD 05/11/23 1906 PATIENT NAME: LUKAS RAMIREZ OPERATIVE REPORT DATE OF : 86 REPORT #: [id number] PHYSICIAN: RUFINO SOLORZANO MD PCP: RICO PARK NP REPORT IS CONFIDENTIAL AND NOT TO BE RELEASED WITHOUT AUTHORIZATION [address] [address] Signed /[id number] cc: Tricia Ross MD Copies: ~ Electronically Signed By: RUFINO SOLORZANO MD 05/11/23 1906 PATIENT NAME: LUKAS RAMIREZ OPERATIVE REPORT DATE OF : 86 REPORT #: [id number] PHYSICIAN: RUFINO SOLORZANO MD PCP: RICO PARK NP REPORT IS CONFIDENTIAL AND NOT TO BE RELEASED WITHOUT AUTHORIZATION
--- NOTE | 2023-05-14 16:38 | PATH ---
[facility] [address] [place], [place] [address] Signed SPECIMEN(S): A GALLBLADDER AND CONTENTS SPECIMEN SOURCE: A. GALLBLADDER AND CONTENTS CLINICAL HISTORY: Chronic cholecystitis, cholelithiasis, GERD. FINAL PATHOLOGIC DIAGNOSIS: Gallbladder and contents: - Chronic calculous cholecystitis. - Mucosal cholesterolosis. JVR:irene MICROSCOPIC EXAMINATION: Histologic sections of all submitted blocks are examined by light microscopy. These findings, together with the gross examination, support the pathologic diagnosis. GROSS DESCRIPTION: The specimen, labeled and designated "Allen Ramirez" and designated on the requisition "gallbladder and contents," is received in formalin and consists of: Specimen: Previously opened gallbladder. Dimensions: 5.0 x 3.4 x 2.0 cm. Serosa: Yellow-mcfadden smooth. Cystic Duct: Unobstructed, margin inked black and shaved. Calculi: Five yellow-green bosselated calculi (all 0.4 cm in greatest dimension). Mucosa: Green and velvety with yellow flecking. Wall thickness: 0.5 cm. Lymph node: No pericystic lymph nodes are grossly identified. Additional: None. Ultrasound Sonographer sections are submitted in (A1). AC (under the direct supervision of a pathologist) The Gross Description was prepared using a voice recognition system. The report was reviewed for accuracy; however, sound-alike word errors, addition and/or deletions may occur. If there is any question about this report, please contact Client Services. PERFORMING LABORATORY: PATIENT NAME: LUKAS ARMIREZ PATHOLOGY DATE OF : 86 REPORT #: [id number] PHYSICIAN: LAUREL TIPOTN PCP: RICO PARK NP REPORT IS CONFIDENTIAL AND NOT TO BE RELEASED WITHOUT AUTHORIZATION [facility] [address] [place], [place] [address] Signed Technical component was performed by [facility], [address] [place] [id number] (CLIA# [id number]). Professional interpretation was performed by [facility] [address] [address] (CLIA#: [id number]). Diagnostician: Andrea Gerardo MD Pathologist Electronically Signed 05/14/2023 Copies: ~ PATIENT NAME: LUKAS RAMIREZ PATHOLOGY DATE OF : 86 REPORT #: [id number] PHYSICIAN: LAUREL TIPTON PCP: RICO PARK NP REPORT IS CONFIDENTIAL AND NOT TO BE RELEASED WITHOUT AUTHORIZATION
== END 2023-05-11 14:10 | disposition home or self-care (01) ==
LOC: DS 09:45
PROVIDERS: ATTEND Surgery
PROC: BF502Z0 Other Imaging of Bile Ducts using Fluorescing Agent, Intraoperative (ICD-10-PCS; 2023-05-11)
PROC: 0FT44ZZ Resection of Gallbladder, Percutaneous Endoscopic Approach (ICD-10-PCS; principal; 2023-05-11 09:30)
DX: K80.10 Calculus of gallbladder with chronic cholecystitis without obstruction (principal); K21.00 Gastro-esophageal reflux disease with esophagitis, without bleeding; N63.11 Unspecified lump in the right breast, upper outer quadrant; E66.9 Obesity, unspecified; Z68.34 Body mass index [BMI] 34.0-34.9, adult; Z88.8 Allergy status to other drugs, medicaments and biological substances; Z79.899 Other long term (current) drug therapy
CPT/HCPCS: 00790; 74300; J0131; J0330; J0690; J1100; J1644; J1885; J2001; J2250; J2405; J2704; J3010; J3490; J7121; Q9967